=== PATIENT | male | born 1945 | race Caucasian/White ===

== ENCOUNTER 2018-04-26 20:34 | Emergency (ER) | payer MEDICARE, MEDICAID ==
[2018-04-26] MEDS ORDERED: Labetalol 20 MG/4 ML Syringe ONE (20:38)
[2018-04-26] MEDS ORDERED: Aspirin 81 MG Tab.Chew ONE (20:39)
[2018-04-26] MEDS ORDERED: Clopidogrel 75 MG Tab ONE (21:18)
--- NOTE | 2018-04-26 21:31 | EDM.PDOC ---
ED HPI GENERAL MEDICAL PROBLEM - General Chief Complaint: Chest Pain Stated Complaint: chest pain, sob, chest burning Time Seen by Provider: 04/26/18 21:25 Source of Information: Reports: Patient, RN History Limitations: Reports: No Limitations - History of Present Illness INITIAL COMMENTS - FREE TEXT/NARRATIVE: Patient is a 72-year-old gentleman with known history of coronary artery recently admitted to [facility] and transferred to [facility] in [facility] today around 6 PM patient complained of chest pain and was evaluated by the nurses and transfer to our hospital once he arrived here patient started complaining of burning chest pain stating that it was similar to his previous MIs we went ahead and obtain the EKG which showed no acute changes we did troponins is CK and CK-MB the CK and CK-MB were elevated troponin was negative at this time I was concerned that this could be acute MO therefore we contacted the [facility] for possible transfer Onset: Today Duration: Hour(s):, Getting Worse Location: Reports: Chest Quality: Reports: Pressure Severity: Mild Improves with: Reports: Medication Worsens with: Reports: None Context: Reports: Activity Associated Symptoms: Reports: Chest Pain, Weakness - Related Data Allergies Allergy/AdvReac Type Severity Reaction Status Date / Time No Known Allergies Allergy Verified 04/26/18 20:57 ED ROS GENERAL - Review of Systems Review Of Systems: See Below Constitutional: Reports: Weakness HEENT: Reports: No Symptoms Respiratory: Reports: Shortness of Breath Cardiovascular: Reports: Chest Pain Endocrine: Reports: No Symptoms GI/Abdominal: Reports: No Symptoms : Reports: No Symptoms Musculoskeletal: Reports: No Symptoms Skin: Reports: No Symptoms Neurological: Reports: No Symptoms ED EXAM, GENERAL - Physical Exam Exam: See Below Exam Limited By: No Limitations General Appearance: No Apparent Distress, Mild Distress Ears: Normal External Exam, Normal Canal, Hearing Grossly Normal, Normal TMs Nose: Normal Inspection, Normal Mucosa, No Blood Throat/Mouth: Normal Inspection, Normal Lips, Normal Teeth, Normal Gums, Normal Oropharynx, Normal Voice, No Airway Compromise Head: Atraumatic, Normocephalic Neck: Normal Inspection, Supple, Non-Tender, Full Range of Motion Respiratory/Chest: Decreased Breath Sounds, Prolonged Expiration Cardiovascular: Regular Rate, Rhythm, No Murmur GI/Abdominal: Normal Bowel Sounds, Soft, Non-Tender, No Organomegaly, No Distention, No Abnormal Bruit, No Mass (Male) Exam: Deferred Rectal (Males) Exam: Deferred Extremities: Pedal Edema, Limited Range of Motion Neurological: Alert, Oriented, CN II-XII Intact, Normal Cognition, Normal Gait, Normal Reflexes, No Motor/Sensory Deficits Psychiatric: Normal Affect, Normal Mood Skin Exam: Warm, Dry, Intact, Normal Color, No Rash Lymphatic: No Adenopathy Course - Orders/Labs/Meds Orders: Active Orders 24 hr Category Date Time Status EKG Documentation Completion [RC] ASDIRECTED Care 04/26/18 21:17 Active Chest 1V Frontal [CR] Stat Exams 04/26/18 21:16 Taken Furosemide [Lasix] Med 04/27/18 08:00 Active 40 mg IVPUSH DAILY Medication Orders Furosemide (Lasix) 40 mg IVPUSH DAILY MIRIAM Labs: Laboratory Tests 04/26/18 04/26/18 04/26/18 Range/Units 20:20 20:20 20:20 WBC 10.6 H (4.0-10.2) K/uL RBC 4.10 L (4.33-5.41) M/uL Hgb 11.2 L (13.1-16.8) g/dL Hct 35.1 L (39.0-49.0) % MCV 85.6 (84.0-98.0) fL MCH 27.3 L (28.2-33.3) pg MCHC 31.9 (31.7-36.0) g/dL RDW 18.2 H (11.2-14.1) % Plt Count 110 L (150-350) K/uL Neut % (Auto) 81.2 H (45.0-80.0) % Lymph % (Auto) 8.8 L (10.0-50.0) % [place] % (Auto) 6.3 (2.0-14.0) % Eos % (Auto) 3.5 (0.0-5.0) % Baso % (Auto) 0.2 (0.0-2.0) % Neut # (Auto) 8.60 H (1.40-7.00) K/uL Lymph # (Auto) 0.93 (0.50-3.50) K/uL [place] # (Auto) 0.67 (0.00-1.00) K/uL Eos # (Auto) 0.37 (0.00-0.50) K/uL Baso # (Auto) 0.02 (0.00-0.20) K/uL PT 10.6 (9.5-12.0) SEC INR 1.0 APTT 39.9 H (21.0-31.3) SEC D-Dimer, Quantitative 231 (0-400) ng/mL Sodium (136-145) mmol/L Potassium (3.5-5.1) mmol/L Chloride (98-107) mmol/L Carbon Dioxide (21.0-32.0) mmol/L BUN (7-18) mg/dL Creatinine (0.51-1.17) mg/dL Est Cr Clr Drug Dosing mL/min Estimated GFR (MDRD) mL/min Glucose (74-106) mg/dL Lactic Acid (0.4-2.0) mmol/L Calcium (8.5-10.1) mg/dL Magnesium (1.8-2.4) mg/dL Total Bilirubin (0.2-1.0) mg/dL AST (15-37) U/L ALT (12-78) U/L Alkaline Phosphatase (46-116) IU/L Creatine Kinase (26-308) U/L Creatine Kinase Index (0.0-2.5) % CK-MB (CK-2) (0.00-3.60) ng/mL Troponin I (0.000-0.056) ng/mL NT-Pro-B Natriuret Pep (0-125) pg/mL Total Protein (6.4-8.2) g/dL Albumin (3.4-5.0) g/dL TSH, Ultra Sensitive (0.358-3.740) mIU/mL 04/26/18 04/26/18 Range/Units 20:20 20:20 WBC (4.0-10.2) K/uL RBC (4.33-5.41) M/uL Hgb (13.1-16.8) g/dL Hct (39.0-49.0) % MCV (84.0-98.0) fL MCH (28.2-33.3) pg MCHC (31.7-36.0) g/dL RDW (11.2-14.1) % Plt Count (150-350) K/uL Neut % (Auto) (45.0-80.0) % Lymph % (Auto) (10.0-50.0) % [place] % (Auto) (2.0-14.0) % Eos % (Auto) (0.0-5.0) % Baso % (Auto) (0.0-2.0) % Neut # (Auto) (1.40-7.00) K/uL Lymph # (Auto) (0.50-3.50) K/uL [place] # (Auto) (0.00-1.00) K/uL Eos # (Auto) (0.00-0.50) K/uL Baso # (Auto) (0.00-0.20) K/uL PT (9.5-12.0) SEC INR APTT (21.0-31.3) SEC D-Dimer, Quantitative (0-400) ng/mL Sodium 138 (136-145) mmol/L Potassium 4.4 (3.5-5.1) mmol/L Chloride 101 (98-107) mmol/L Carbon Dioxide 30.2 (21.0-32.0) mmol/L BUN 79 H (7-18) mg/dL Creatinine 1.69 H (0.51-1.17) mg/dL Est Cr Clr Drug Dosing 38.30 mL/min Estimated GFR (MDRD) 40 mL/min Glucose 258 H (74-106) mg/dL Lactic Acid 1.2 (0.4-2.0) mmol/L Calcium 9.1 (8.5-10.1) mg/dL Magnesium 2.0 (1.8-2.4) mg/dL Total Bilirubin 0.5 (0.2-1.0) mg/dL AST 18 (15-37) U/L ALT 26 (12-78) U/L Alkaline Phosphatase 217 H (46-116) IU/L Creatine Kinase 62 (26-308) U/L Creatine Kinase Index 6.6 H (0.0-2.5) % CK-MB (CK-2) 4.10 H (0.00-3.60) ng/mL Troponin I 0.018 (0.000-0.056) ng/mL NT-Pro-B Natriuret Pep 1393 H (0-125) pg/mL Total Protein 6.7 (6.4-8.2) g/dL Albumin 3.2 L (3.4-5.0) g/dL TSH, Ultra Sensitive 4.700 H (0.358-3.740) mIU/mL Meds: Medications Generic Name Dose Route Start Last Admin Trade Name Freq PRN Reason Stop Dose Admin Furosemide 40 mg 04/27/18 08:00 Lasix IVPUSH DAILY MIRIAM Discontinued Medications Generic Name Dose Route Start Last Admin Trade Name Freq PRN Reason Stop Dose Admin Aspirin Confirm 04/26/18 20:39 Aspirin Administered 04/26/18 20:40 Dose 324 mg .ROUTE .STK-MED ONE Clopidogrel Bisulfate Confirm 04/26/18 21:18 Plavix Administered 04/26/18 21:19 Dose 300 mg .ROUTE .STK-MED ONE Furosemide Confirm 04/26/18 21:39 Lasix Administered 04/26/18 21:40 Dose 40 mg .ROUTE .STK-MED ONE Labetalol HCl Confirm 04/26/18 20:38 Normodyne Administered 04/26/18 20:39 Dose 20 mg .ROUTE .STK-MED ONE Metoprolol Tartrate Confirm 04/26/18 21:40 Lopressor Administered 04/26/18 21:41 Dose 25 mg .ROUTE .STK-MED ONE Departure - Departure Time of Disposition: 23:08 Disposition: DC/Tfer to [facility] Reason for Transfer *Q: Primary PCI Indicated Clinical Impression: Chest pain Qualifiers: Chest pain type: unspecified Qualified Code(s): R07.9 - Chest pain, unspecified Forms: ED Department Discharge Care Plan Goals: At this time patient was seen in the emergency room with atypical chest pain we went ahead and started the workup chest x-ray revealed congestion then troponins and enzymes were elevated with CK-MB elevated at 4.1 CK MB index elevated at 6.6 troponins at 0.018 I felt the patient should be ruled out we will transfer him to the [facility] in [place] attending Dr Soliz agreed - My Orders Last 24 Hours: My Active Orders 04/26/18 21:16 Chest 1V Frontal [CR] Stat 04/26/18 21:17 EKG Documentation Completion [RC] ASDIRECTED 04/27/18 08:00 Furosemide [Lasix] 40 mg IVPUSH DAILY - Assessment/Plan Last 24 Hours: My Active Orders 04/26/18 21:16 Chest 1V Frontal [CR] Stat 04/26/18 21:17 EKG Documentation Completion [RC] ASDIRECTED 04/27/18 08:00 Furosemide [Lasix] 40 mg IVPUSH DAILY
[2018-04-26] MEDS ORDERED: Furosemide 40 MG/4 ML VIAL ONE (21:39)
[2018-04-26] MEDS ORDERED: Metoprolol Tartrate 25 MG Tab ONE (21:40)
[2018-04-27] MEDS ORDERED: Furosemide 40 MG/4 ML VIAL IVPUSH SCH (08:00)
== END 2018-04-27 00:10 ==
LOC: MERGE 20:34 → LL.ED 20:34
DX: R07.9 Chest pain, unspecified (principal)
CPT/HCPCS: 36415; 51702; 71045; 80053; 82550; 82553; 83605; 83735; 83880; 84443; 84484; 85025; 85379; 85610; 85730; 93005; 96374; 96375; 99285